=== PATIENT | female | born 1975 | race Asian ===

== ENCOUNTER 2022-04-04 15:08 | Emergency (ER) | payer OTHER ==
[~2022-04-04] VITALS: Ht 167.6 cm; Wt 54.4 kg
--- NOTE | 2022-04-04 15:41 | NUR ---
PT BIB BY [employer] [facility] 10X1 FOR MEDICAL CLEARANCE FOR OTB. PT HAS NO MEDICAL COMPLAINTS.
[2022-04-04 15:44] VITALS: BP 133/92
== END 2022-04-04 15:46 ==
LOC: ER 15:34
DX: Z02.89 Encounter for other administrative examinations (principal); F31.9 Bipolar disorder, unspecified; Z88.8 Allergy status to other drugs, medicaments and biological substances